=== PATIENT | female | born 2000 | race Two or more races ===

== ENCOUNTER 2021-04-13 10:03 | Emergency (ER) | payer MEDICAID, OTHER ==
[~2021-04-13] VITALS: Ht 152.4 cm; Wt 41.3 kg
[2021-04-13 10:03] VITALS: BP 118/76
[2021-04-13 10:49] LABS: Urine Bacteria FEW /hpf (None Seen); Urine Blood Negative /uL (Negative); Urine Mucus FEW (None Seen); Urine Specific Gravity 1.017 (1.001-1.035); Urine WBC 3 /hpf (0 - 5)
[2021-04-13 10:58] LABS: Alcohol, Urine < 3.0 mg/dL (0-10); Amphetamine Screen, Urine NEGATIVE (NEGATIVE); Barbiturate Scree,Urine NEGATIVE (NEGATIVE); Benzodiazephine Screen, Urine NEGATIVE (NEGATIVE); Cannabinoid Screen, Urine NEGATIVE (NEGATIVE); Cocaine Screen, Urine NEGATIVE (NEGATIVE); Opiate Scree,Urine NEGATIVE (NEGATIVE); Phencyclidine Screen, Urine NEGATIVE (NEGATIVE)
== END 2021-04-13 12:09 | disposition home or self-care (01) ==
LOC: ER 10:03
DX: R07.89 Other chest pain (principal); F41.9 Anxiety disorder, unspecified; Z32.02 Encounter for pregnancy test, result negative
CPT/HCPCS: 80307; 81001; 81025; 93005

== ENCOUNTER 2021-05-08 11:35 | Emergency (ER) | payer MEDICAID ==
[~2021-05-08] VITALS: Ht 152.4 cm; Wt 40.8 kg
[2021-05-08] MEDS ORDERED: MORPHINE SULFATE 4 MG/ML SYR/VIAL IV ONE (12:00)
[2021-05-08] MEDS ORDERED: ONDANSETRON HCL 4 MG/2 ML VIAL IV ONE (12:00)
[2021-05-08] MEDS ORDERED: SODIUM CHLORIDE 0.9% 500 ML IVB ONE (12:00)
[2021-05-08 12:11] LABS: Urine Bacteria FEW /hpf (None Seen); Urine Blood Negative /uL (Negative); Urine Specific Gravity 1.002 (1.001-1.035); Urine WBC 1 /hpf (0 - 5)
[2021-05-08 12:15] LABS: Basophils # (auto) 0 10 ^3/uL (0-0.2); Basophils % (auto) 0.3 % (0.0-2.0); Eosinophils # (auto) 0 10 ^3/uL (0-0.8); Monocytes # (auto) 0.4 10 ^3/uL (0-1.3)
[2021-05-08 12:17] LABS: Eosinophils % (auto) 0.3 % (0.0-7.0); Hematocrit 36.6 % (36.0-46.0); Hemoglobin 11.7 g/dL (12.2-16.2); Lymphocytes # (auto) 0.9 10 ^3/uL (0.4-5.4); Lymphocytes % (auto) 11.8 % (10.0-50.0); Mean Corpuscular Hemoglobin 24.5 pg (28.0-32.0); Mean Corpuscular Hgb Conc. 32.1 g/dL (32.0-36.0); Mean Corpuscular Volume 76.2 fL (80.0-100.0); Monocytes % (auto) 5.4 % (0.0-12.0); Neutrophils # (auto) 6.4 10 ^3/uL (1.6-8.6); Neutrophils % (auto) 82.2 % (37.0-80.0); White Blood Cell 7.8 10^3/uL (4.4-10.8)
[2021-05-08 12:40] LABS: Albumin 4.3 g/dL (3.4-5.0); Calcium 8.7 mg/dL (8.5-10.1); Potassium 3.5 mmol/L (3.5-5.1)
[2021-05-08 12:45] LABS: BUN/Creatinine Ratio 10.5; Bilirubin, Total 0.7 mg/dL (0.2-1.0)
[2021-05-08] MEDS ORDERED: IOHEXOL 300 MG/ML 100ML BOTTLE IJ ONE (12:54)
[2021-05-08 13:20] VITALS: BP 124/65
== END 2021-05-08 16:31 | disposition home or self-care (01) ==
LOC: ER 11:35
DX: N83.201 Unspecified ovarian cyst, right side (principal); Z32.02 Encounter for pregnancy test, result negative
CPT/HCPCS: 36415; 74177; 76856; 80053; 81001; 81025; 83690; 83735; 85025; 96361; 96374; 96375; 99285; J2270; J2405; J7040; Q9967

== ENCOUNTER 2022-04-02 10:40 | Emergency (ER) | payer MEDICAID ==
[~2022-04-02] VITALS: Ht 152.4 cm; Wt 47.6 kg
[2022-04-02 10:49] VITALS: BP 129/85
[2022-04-02 11:22] LABS: Eosinophils # (auto) 0.1 10 ^3/uL (0-0.8); Hemoglobin 11.7 g/dL (12.2-16.2); Lymphocytes # (auto) 1.2 10 ^3/uL (0.4-5.4); Mean Corpuscular Hemoglobin 25.3 pg (28.0-32.0); Neutrophils # (auto) 2.8 10 ^3/uL (1.6-8.6); Red Cell Distribution Width 15.2 % (11.8-14.3); White Blood Cell 4.5 10^3/uL (4.4-10.8)
[2022-04-02 11:24] LABS: Basophils # (auto) 0 10 ^3/uL (0-0.2); Hematocrit 36.3 % (36.0-46.0); Lymphocytes % (auto) 27.3 % (10.0-50.0); Mean Corpuscular Hgb Conc. 32.2 g/dL (32.0-36.0); Mean Corpuscular Volume 78.7 fL (80.0-100.0); Monocytes # (auto) 0.3 10 ^3/uL (0-1.3); Monocytes % (auto) 7.2 % (0.0-12.0); Neutrophils % (auto) 62.5 % (37.0-80.0); Red Blood Cells 4.62 10^6/uL (4.0-5.20)
[2022-04-02 11:30] LABS: Urine Bacteria NONE SEEN /hpf (None Seen); Urine Blood 3+ /uL (Negative); Urine Specific Gravity 1.016 (1.001-1.035); Urine WBC 1 /hpf (0 - 5)
[2022-04-02 11:35] LABS: Calcium 8.5 mg/dL (8.5-10.1); Potassium 4.1 mmol/L (3.5-5.1)
[2022-04-02 11:38] LABS: BUN/Creatinine Ratio 14.3; Bilirubin, Total 0.5 mg/dL (0.2-1.0); Total Protein 7.8 g/dL (6.4-8.2)
== END 2022-04-02 13:45 | disposition home or self-care (01) ==
LOC: ER 10:40
DX: R10.31 Right lower quadrant pain (principal)
CPT/HCPCS: 36415; 74176; 80053; 81001; 81025; 83690; 85025

== ENCOUNTER 2022-05-17 15:54 | Emergency (ER) | payer MEDICAID ==
[2022-05-17 17:18] LABS: Basophils # (auto) 0 10 ^3/uL (0-0.2); Hemoglobin 11.3 g/dL (12.2-16.2); Lymphocytes % (auto) 9.3 % (10.0-50.0); Monocytes # (auto) 0.5 10 ^3/uL (0-1.3); Red Cell Distribution Width 15.2 % (11.8-14.3)
[2022-05-17 17:19] LABS: Basophils % (auto) 0.2 % (0.0-2.0); Eosinophils # (auto) 0.1 10 ^3/uL (0-0.8); Eosinophils % (auto) 0.7 % (0.0-7.0); Hematocrit 36.1 % (36.0-46.0); Mean Corpuscular Hemoglobin 24.2 pg (28.0-32.0); Mean Corpuscular Hgb Conc. 31.2 g/dL (32.0-36.0); Mean Corpuscular Volume 77.7 fL (80.0-100.0); Monocytes % (auto) 4.5 % (0.0-12.0); Neutrophils # (auto) 8.9 10 ^3/uL (1.6-8.6); Neutrophils % (auto) 85.3 % (37.0-80.0); Red Blood Cells 4.65 10^6/uL (4.0-5.20); White Blood Cell 10.4 10^3/uL (4.4-10.8)
[2022-05-17 17:31] LABS: Calcium 8.6 mg/dL (8.5-10.1); Potassium 3.2 mmol/L (3.5-5.1)
[2022-05-17 17:36] LABS: BUN/Creatinine Ratio 14.1; Bilirubin, Total 0.3 mg/dL (0.2-1.0); Total Protein 7.4 g/dL (6.4-8.2)
[2022-05-17 19:31] LABS: Urine Bacteria NONE SEEN /hpf (None Seen); Urine Blood Negative /uL (Negative); Urine Specific Gravity 1.014 (1.001-1.035); Urine WBC 1 /hpf (0 - 5)
[2022-05-17] MEDS ORDERED: POTASSIUM EFFERVESENT TAB 25 MEQ PO ONE (20:15)
[2022-05-17] MEDS ORDERED: SODIUM CHLORIDE 0.9% 1,000 ML IV ONE (20:15)
[2022-05-17] MEDS ORDERED: DOXY100C PO (21:07)
[2022-05-17] MEDS ORDERED: DICL50TA2 PO (21:07)
[2022-05-17] MEDS ORDERED: TRAM50TA2 PO (21:07)
[2022-05-17] MEDS ORDERED: METOCLOPRAMIDE HCL 5MG/ml INJ 2ml VIAL IV ONE (21:15)
[2022-05-17] MEDS ORDERED: KETOROLAC TROMETH 30 MG/ML 1ML VIAL IV ONE (21:15)
[2022-05-17 21:39] VITALS: BP 107/86
[2022-05-17] MEDS ORDERED: IOHEXOL 300 MG/ML 100ML BOTTLE IJ ONE (21:40)
== END 2022-05-17 21:54 | disposition home or self-care (01) ==
LOC: ER 15:54
DX: N83.201 Unspecified ovarian cyst, right side (principal); E87.6 Hypokalemia; D50.9 Iron deficiency anemia, unspecified; K59.00 Constipation, unspecified
CPT/HCPCS: 36415; 74177; 76705; 76856; 80053; 81001; 84702; 85025; 96374; 96375; 99285; J1885; J2765; Q9967

== ENCOUNTER 2024-02-27 04:44 | Emergency (ER) | payer MEDICAID ==
[~2024-02-27] VITALS: Ht 152.4 cm; Wt 70.2 kg
[~2024-02-27 04:44] MED LIST: DICL50TA2 PO; DOXY100C PO; TRAM50TA2 PO
[2024-02-27 07:28] LABS: Urine Bacteria None Seen /hpf (None Seen)
[2024-02-27 07:37] LABS: Urine Blood 2+ /uL (Negative); Urine Clarity Clear (Clear); Urine Color Light-Yellow (Yellow); Urine Protein, UAD Negative (Negative); Urine Specific Gravity 1.018 (1.001-1.035); Urine Urobilinogen Normal (Negative); Urine WBC 4 /hpf (0 - 5); Urine pH 5.5 (5.0-9.0)
[2024-02-27 08:11] VITALS: BP 127/81; PULSE 76; RESP 17; TEMP 97.9; O2SAT 98
[2024-02-27] MEDS: HYDROcodone-ACET 5/325MG TAB PO ONE (08:11)
== END 2024-02-27 08:16 | disposition home or self-care (01) ==
LOC: ER 04:44
DX: N94.6 Dysmenorrhea, unspecified (principal); F12.10 Cannabis abuse, uncomplicated; Z32.02 Encounter for pregnancy test, result negative
CPT/HCPCS: 81001; 81025

== ENCOUNTER 2024-03-09 06:11 | Emergency (ER) | payer MEDICAID ==
[~2024-03-09] VITALS: Ht 152.4 cm; Wt 68.2 kg
[2024-03-09 06:32] VITALS: BP 141/98; PULSE 78; RESP 18; TEMP 98
[2024-03-09 06:52] VITALS: O2SAT 99
[2024-03-09] MEDS: EPINEPHrine HCL 1 MG/1 ML AMP SC ONE (07:32)
[2024-03-09] MEDS: methylPREDNISolone SOD SUCC 125 MG/2 ML VL IM ONE (07:32)
[2024-03-09] MEDS ORDERED: TRIA0.02 TOP (07:35)
[2024-03-09] MEDS ORDERED: METH4PAK PO (07:35)
== END 2024-03-09 07:45 | disposition home or self-care (01) ==
LOC: ER 06:11
DX: T80.69XA Other serum reaction due to other serum, initial encounter (principal); F12.10 Cannabis abuse, uncomplicated
CPT/HCPCS: 96372; 99284; J0171; J2919

== ENCOUNTER 2024-12-10 04:00 | Emergency (ER) | payer MEDICAID ==
[~2024-12-10] VITALS: Ht 152.4 cm; Wt 75.6 kg
[~2024-12-10 04:00] MED LIST changes: +METH4PAK PO; +TRIA0.02 TOP
[2024-12-10 04:30] VITALS: BP 142/96; PULSE 92; RESP 16; TEMP 98.2; O2SAT 98
--- NOTE | 2024-12-10 04:31 | ED.PDOC ---
Eye-HPI HPI Comments Pt presents to ED d/t sore throat. Pt was recenty treated at [facility] and di agnosed with an ear infection and given antibiotics (cephelexin) and ibuprofen. Pt was also swabbed for covid, flu, and strep, all negative. Pt states she has trouble swallowing and was febrile yesterday at 101. Airway clear. VSS. Denies chest pain, difficulty breathing, shortness of breath. Chief Complaint: Sore Throat Time Seen by MD: 04:02 Primary Care Provider: John Reviewed Notes: Nurses Notes, Medications, Allergies Allergies: Coded Allergies: NO KNOWN ALLERGIES (Unverified , 04/13/21) Home Meds Active Scripts Ondansetron Odt 4MG Tab (ZOFRAN PO) 4 Mg Tb, 4 MG PO TID for 4 Days, #12 TAB ODT TAB-DISSOLVE IN MOUTH, THEN SWALLOW Prov:LOURDES MARRERO HEAD BANDER AND LINER OPERATOR 12/10/24 Methylprednisolone (Medrol Dosepak) 4 Mg Johnathon, 4 MG PO UD for 6 Days, #21 TAB UAD Prov:LOURDES MARRERO HEAD BANDER AND LINER OPERATOR 12/10/24 Amoxicillin & Pot Clavulanate (AUGMENTIN TABLET) 875 Mg Tb, 875 MG PO BID for 10 Days, #20 TAB Prov:LOURDES MARRERO HEAD BANDER AND LINER OPERATOR 12/10/24 Triamcinolone Acetonide (Triamcinolone Acetonide) 0.025 % Cre, 1 APPLIC TOP BID, #30 GRAMS Prov:MARIELA CATHERINE 03/09/24 Methylprednisolone (Medrol Dosepak) 4 Mg Johnathon, 4 MG PO UD, #21 TAB UAD Prov:MARIELA CATHERINE 03/09/24 Tramadol Hcl (Tramadol Hcl) 50 Mg Tab, 50 MG PO BID for 5 Days, #10 TAB Prov:STACY BAIN MD 05/17/22 Doxycycline Hyclate (Vibramycin) 100 Mg Cap, 1 CAP PO BID for 7 Days, #14 CAP Prov:STACY BAIN MD 05/17/22 Diclofenac Potassium (Diclofenac Potassium) 50 Mg Tab, 50 MG PO TID for 5 Days, #15 TAB Prov:STACY BAIN MD 05/17/22 Past Medical History PAST MEDICAL HISTORY: Denies Surgical History: Denies all surgeries FASHION CONSULTANT History: Ovarian Cysts Family History Family History: Reviewed,noncontributory to illness Social History Smoker: Non-Smoker Alcohol: Occasionally Drugs: Marijuana Lives In: Home Constitutional: denies: chills, diaphoresis, fatigue, fever, malaise, sweats, weakness, others EENTM: reports: throat pain, throat swelling; denies: blurred vision, double vision, ear bleeding, ear discharge, ear drainage, ear pain, ear ringing, eye pain, eye redness, hearing loss, mouth pain, mouth swelling, nasal discharge, nose bleeding, nose congestion, nose pain, photophobia, tearing, voice changes, others Respiratory: denies: cough, hemoptysis, orthopnea, SOB at rest, shortness of breath, SOB with excertion, stridor, wheezing, others Cardiovascular: denies: chest pain, dizzy spells, diaphoresis, Dyspnea on exertion, edema, irregular heart beat, left arm pain, lightheadedness, p alpitations, PND, syncope, others Gastrointestinal: reports: nausea; denies: abdomen distended, abdominal pain, blood streaked bowels, constipated, diarrhea, dysphagia, difficulty swallowing, hematemesis, melena, poor appetite, poor fluid intake, rectal bleeding, rectal pain, vomiting, others Genitourinary: denies: abnormal vagina bleeding, burning, dyspareunia, dysuria, flank pain, frequency, hematuria, incontinence, pain, , vagina di scharge, urgency, others Neurological: denies: dizziness, fainting, headache, left sided numbness, left sided weakness, numbness, paresthesia, pre-existing deficit, right sided numbness, right sided weakness, seizure, speech problems, tingling, tremors, weakness, others Musculoskeletal: denies: back pain, gout, joint pain, joint swelling, muscle pain, muscle stiffness, neck pain, others Integumetry: denies: bruises, change in color, change in hair/nails, dryness, laceration, lesions, lumps, rash, wounds, others Allergic/Immunocompromised: denies: Difficulty Healing, Frequent Infections, Hives, Itching, others Hematologic/Lymphatic: denies: anemia, blood clots, easy bleeding, easy bruising, swollen glands, others Endocrine: denies: excessive hunger, excessive sweating, excessive thirst, excessive urination, flushing, intolerance to cold, intolerance to heat, unexplained weight gain, unexplained weight loss, others Psychiatric: denies: anxiety, bipolar disorder, depression, hopeless, panic disorder, schizophrenia, sleepless, suicidal, others Physical Exam General Appearance: No Apparent Distress, Normal HEENT: Pharyngeal Erythema, TMs Normal Neck: Full Range of Motion, Non-Tender Respiratory: Lungs Clear, No Respiratory Distress, Normal Breath Sounds Cardiovascular: No Murmur, Normal Peripheral Pulses, Regular Rate/Rhythm Breast Exam: Deferred Gastrointestinal: Non Tender, Soft Genitalia: Deferred Pelvic: Deferred Rectal: Deferred Extremities: No calf tenderness, Normal range of motion Musculoskeletal : Apperance: Normal Neurologic: Alert, reroller hand II-XII nml as Tested, No Motor Deficits, Normal Affect, Normal Mood, No Sensory Deficits Cerebellar Function: Normal Reflexes: Normal Skin: Dry, Normal Color, Warm Lymphatic: No Adenopathy Was a procedure done? Was a procedure done?: No EENT DIFF Eye: N/A Sore Throat: Peritonsillar Abscess, Peritonsillar Cellulitis, Pharyngitis, Viral Pharyngitis, URI X-Ray, Labs, Meds, VS Vital Signs Date Time Temp Pulse Resp B/P (MAP) Pulse Ox O2 Delivery O2 Flow Rate FiO2 12/10/24 04:30 92 16 98 Room Air 12/10/24 04:30 98.2 92 16 142/96 (111) 98 98.2 12/10/24 04:20 98.2 92 16 142/96 (111) 98 Current Medications Medications (Trade) Dose Ordered Sig/Tung Route Start Time Stop Time Status Last Admin Ceftriaxone Sodium (Rocephin) 1,000 mg ONCE ONCE IM 12/10/24 04:45 12/10/24 04:46 DC 12/10/24 04:40 Dexamethasone Sodium Phosphate (Decadron Injection) 10 mg ONCE ONCE IM 12/10/24 04:45 12/10/24 04:46 DC 12/10/24 04:40 Ondansetron HCl (Zofran Po) 4 mg ONCE ONCE PO 12/10/24 04:45 12/10/24 04:46 DC 12/10/24 04:40 X-Ray, Labs, Meds, VS Comment Patient given Rocephin 1 g IM and Decadron 10 mg IM reports improvement requesting discharge at this time. Likely bacterial advised patient to start the Keflex and start Augmentin Medrol Dosepak script to pharmacy. Zofran sublingual p.r.n. nausea. Increase p.o. fluids with electrolytes consider popsicles to help soothe the throat. With her PCP in 1-2 days take medications as prescribed side effects discussed ER return precautions given patient indicates understanding agrees with discharge plan of care. Time of 1ST Reevaluation: 04:51 Reevaluation 1ST: Improved Patient Education/Counseling: Diagnosis, Treatment, Prognosis, Need For Follow Up Family Education/Counseling: Diagnosis, Treatment, Prognosis, Need For Follow Up Departure 1 Departure Time of Disposition: 04:51 Impression: Primary Impression: Pharyngitis Qualified Codes: J02.9 - Acute pharyngitis, unspecified Additional Impression: Nausea Disposition: 01 HOME / SELF CARE / HOMELESS Condition: Stable e-Prescriptions Ondansetron Odt 4MG Tab (ZOFRAN PO) 4 Mg Tb 4 MG PO TID for 4 Days, #12 TAB ODT TAB-DISSOLVE IN MOUTH, THEN SWALLOW Prov: LOURDES MARRERO 12/10/24 Methylprednisolone (Medrol Dosepak) 4 Mg Johnathon 4 MG PO UD for 6 Days, #21 TAB UAD Prov: LOURDES MARRERO 12/10/24 Amoxicillin & Pot Clavulanate (AUGMENTIN TABLET) 875 Mg Tb 875 MG PO BID for 10 Days, #20 TAB Prov: LOURDES MARRERO 12/10/24 Discharged With: Significant Other Critical Care Note Critical Care Time?: No Stability Stability form required: No LOURDES MARRERO Dec 10, 2024 04:31
[2024-12-10] MEDS: ONDANSETRON ODT 4 MG TAB PO ONE (04:40)
[2024-12-10] MEDS: cefTRIAXone SOD 1,000 MG VL IM ONE (04:40)
[2024-12-10] MEDS: DexAMETHasone SOD PHOS 10MG/1ML VIAL INJ IM ONE (04:40)
[2024-12-10] MEDS ORDERED: AUG875T PO (04:41)
[2024-12-10] MEDS ORDERED: METH4PAK PO (04:41)
[2024-12-10] MEDS ORDERED: ZOFR4T PO (04:41)
== END 2024-12-10 04:59 | disposition home or self-care (01) ==
LOC: ER 04:00
DX: J02.9 Acute pharyngitis, unspecified (principal); R11.0 Nausea; F12.90 Cannabis use, unspecified, uncomplicated; Z79.899 Other long term (current) drug therapy
CPT/HCPCS: 96372; 99284; J0696; J1100; Q0162

== ENCOUNTER 2025-04-10 22:37 | Emergency (ER) | payer MEDICAID ==
[~2025-04-10] VITALS: Ht 152.4 cm; Wt 76.5 kg
[2025-04-10 23:29] VITALS: BP 140/87; PULSE 87; RESP 20; TEMP 98.3; O2SAT 99
[2025-04-10 23:32] LABS: Urine Bacteria MANY /hpf (None Seen); Urine Blood 1+ /uL (Negative); Urine Clarity Turbid (Clear); Urine Color Yellow (Yellow); Urine Mucus FEW (None Seen); Urine Protein, UAD TRACE (Negative); Urine Specific Gravity 1.034 (1.001-1.035); Urine Squamous Epithelial Cell FEW /hpf (<5); Urine Urobilinogen Normal (Negative); Urine WBC 18 /HPF (0-5)
[2025-04-10] MEDS ORDERED: BACDST PO (23:42)
[2025-04-10] MEDS ORDERED: ACET500T58 PO (23:42)
--- NOTE | 2025-04-10 23:42 | ED.PDOC ---
General HPI Comments 24-year-old female presents to ER with urinary complaint x3 days. Patient reports she has been experiencing burning with urination, increase in urination and intermittent lower back pain x3 days. Denies any current pain denies use of medications for current symptoms. Patient presents to ER ambulatory on arrival, with steady gait, in no distress with vitals stable. Denies fever, body aches, chills, night sweats, n/v, abdominal/pelvic pain, flank pain, further changes in urination or any further symptoms/complaints Chief Complaint: Urinary Time Seen by MD: 22:39 Primary Care Provider: John Hines notes: Nurses Notes, Medications, Allergies Allergies: Coded Allergies: NO KNOWN ALLERGIES (Unverified , 04/13/21) Home Meds Active Scripts Acetaminophen (Acetaminophen) 500 Mg Tab, 500 MG PO Q4HPRN, #30 TAB 0 Refills Prov:ANGELES MOCTEZUMA 04/10/25 Sulfamethoxazole W/Trimethopri (Bactrim Ds Tablet) 1 Tab Tb, 1 TAB PO BID for 7 Days, #14 TAB 0 Refills Prov:ANGELES MOCTEZUMA 04/10/25 Triamcinolone Acetonide (Triamcinolone Acetonide) 0.025 % Cre, 1 APPLIC TOP BID, #30 GRAMS Prov:MARIELA CATHERINE 03/09/24 Methylprednisolone (Medrol Dosepak) 4 Mg Johnathon, 4 MG PO UD, #21 TAB UAD Prov:MARIELA CATHERINE 03/09/24 Tramadol Hcl (Tramadol Hcl) 50 Mg Tab, 50 MG PO BID for 5 Days, #10 TAB Prov:STACY BAIN MD 05/17/22 Doxycycline Hyclate (Vibramycin) 100 Mg Cap, 1 CAP PO BID for 7 Days, #14 CAP Prov:STACY BAIN MD 05/17/22 Diclofenac Potassium (Diclofenac Potassium) 50 Mg Tab, 50 MG PO TID for 5 Days, #15 TAB Prov:STACY BAIN MD 05/17/22 Information Source: Patient Mode of Arrival: Ambulatory Past Medical History PAST MEDICAL HISTORY: UTI'S Surgical History: Denies all surgeries DIETIST History: Ovarian Cysts Family History Family History: Unknown Social History Smoker: Non-Smoker Alcohol: Occasionally Drugs: Denies Drug Use Lives In: Home Constitutional: denies: chills, diaphoresis, fatigue, fever, malaise, sweats, weakness, others EENTM: denies: blurred vision, double vision, ear bleeding, ear discharge, ear drainage, ear pain, ear ringing, eye pain, eye redness, hearing loss, mouth pain, mouth swelling, nasal discharge, nose bleeding, nose congestion, nose pain, photophobia, tearing, throat pain, throat swelling, voice changes, others Respiratory: denies: cough, hemoptysis, orthopnea, SOB at rest, shortness of breath, SOB with excertion, stridor, wheezing, others Cardiovascular: denies: chest pain, dizzy spells, diaphoresis, Dyspnea on exertion, edema, irregular heart beat, left arm pain, lightheadedness, palpitations, PND, syncope, others Gastrointestinal: denies: abdomen distended, abdominal pain, blood streaked bowels, constipated, diarrhea, dysphagia, difficulty swallowing, hematemesis, melena, nausea, poor appetite, poor fluid intake, rectal bleeding, rectal pain, vomiting, others Genitourinary: reports: others (As stated in HPI) Neurological: denies: dizziness, fainting, headache, left sided numbness, left sided weakness, numbness, paresthesia, pre-existing deficit, right sided numbness, right sided weakness, seizure, speech problems, tingling, tremors, weakness, others Musculoskeletal: reports: others (As stated in HPI) Integumetry: denies: bruises, change in color, change in hair/nails, dryness, laceration, lesions, lumps, rash, wounds, others Allergic/Immunocompromised: denies: Difficulty Healing, Frequent Infections, Hives, Itching, others Hematologic/Lymphatic: denies: anemia, blood clots, easy bleeding, easy bruising, swollen glands, others Endocrine: denies: excessive hunger, excessive sweating, excessive thirst, excessive urination, flushing, intolerance to cold, intolerance to heat, unexplained weight gain, unexplained weight loss, others Psychiatric: denies: anxiety, bipolar disorder, depression, hopeless, panic disorder, schizophrenia, sleepless, suicidal, others Physical Exam General Appearance: No Apparent Distress HEENT: PERRL/EOMI Neck: Full Range of Motion, Non-Tender, Normal Respiratory: Chest Non-Tender, Lungs Clear, No Accessory Muscle Use, No Respiratory Distress, Normal Breath Sounds Cardiovascular: No Murmur, No Gallop, Regular Rate/Rhythm Breast Exam: Deferred Gastrointestinal: Non Tender, No Pulsatile Mass, Soft Genitalia: Deferred Pelvic: Deferred Rectal: Deferred Extremities: Normal capillary refill, Normal range of motion Musculoskeletal : Extremity Location: Back (No TTP to bilateral flanks or CVA tenderness noted bilaterally) Neurologic: Alert, bus analyst II-XII nml as Tested, No Motor Deficits, Normal Affect, Normal Mood, No Sensory Deficits Cerebellar Function: Normal Reflexes: Normal Skin: Dry, Normal Color, Warm Lymphatic: No Adenopathy Was a procedure done? Was a procedure done?: No Sedation Sedation?: No Differential Diagnosis Kidney stone (Female): N/A Urinary Problem (Female): Intrauterine , Pyelonephritis, Urinary retention, Urolithiasis X-Ray, Labs, Meds, VS Vital Signs Date Time Temp Pulse Resp B/P (MAP) Pulse Ox O2 Delivery O2 Flow Rate FiO2 04/10/25 23:29 99 Room Air* 0 21 04/10/25 23:29 98.3 87 20 140/87 (104) 99 98.3 04/10/25 23:04 98.3 87 20 140/87 (104) 99 98.3 Lab Test 04/10/25 23:00 Range/Units Urine Color Yellow Yellow Urine Clarity Turbid H Clear Urine pH 6.0 5.0-9.0 Urine Specific [place] 1.034 1.001-1.035 Urine Protein Trace H Negative Urine Ketones Trace Negative Urine Blood 1+ H Negative /uL Urine Nitrite 2+ H Negative Urine Bilirubin Negative Negative Urine Urobilinogen Normal Negative mg/dL Urine Leukocyte Esterase 2+ Negative /uL Urine RBC 7 0 - 4 /hpf Urine Microscopic WBC 18 H 0-5 /HPF Urine Squamous Epithelial Cells Few <5 /hpf Urine Bacteria Many H None Seen /hpf Urine Mucus Few None Seen Urine Glucose Normal Normal mg/dL Urine Test Negative Negative Urinalysis reviewed-urine nitrites 2+, urine blood 1+, urine leukocyte esterase 2+ Urine reviewed-negative Rocephin 1 g IM ordered Advised to drink plenty of fluids Advised to follow up with PCP in 1-2 days Patient verbalized understanding and agreeable with current plan of care Advised to return to ER immediately if symptoms worsen Time of 1ST Reevaluation: 23:24 Reevaluation 1ST: N/A Patient Education/Counseling: Diagnosis, Treatment, Prognosis, Need For Follow Up Family Education/Counseling: No Family Present SEPSIS Sepsis Screen Date sepsis recognized/suspect: Apr 10, 2025 Time Sepsis recognized/suspect: 2246 Recent Procedure: No On Antibiotic Therapy: No Respiratory Rate >20: No Heart Rate >90: No Temp<36 C (96.8 F) or >38.3 C: No SBP <90 or MAP <65 mmHG: No New Acute Mental Status Change: No Is the patient on CPAP, BIPAP,: No Physician Orders Ceftriaxone Sodium (Rocephin) (04/10/25 23:45) Vital Signs Date Time Temp Pulse Resp B/P (MAP) Pulse Ox O2 Delivery O2 Flow Rate FiO2 04/10/25 23:29 99 Room Air* 0 21 04/10/25 23:29 98.3 87 20 140/87 (104) 99 98.3 04/10/25 23:04 98.3 87 20 140/87 (104) 99 98.3 Departure 1 Departure Time of Disposition: 23:40 Impression: Primary Impression: UTI (urinary tract infection) Qualified Codes: N30.01 - Acute cystitis with hematuria Disposition: HOME / SELF CARE / HOMELESS Condition: Stable e-Prescriptions Acetaminophen (Acetaminophen) 500 Mg Tab 500 MG PO Q4HPRN, #30 TAB 0 Refills Prov: ANGELES MOCTEZUMA 04/10/25 Sulfamethoxazole W/Trimethopri (Bactrim Ds Tablet) 1 Tab Tb 1 TAB PO BID for 7 Days, #14 TAB 0 Refills Prov: ANGELES MOCTEZUMA 04/10/25 Discharged With: Self Critical Care Note Critical Care Time?: No Stability Stability form required: No Heart Score Heart Score: Heart Score Response (Comments) Value History N/A 0 EKG N/A 0 Age N/A 0 Risk Factors N/A 0 Troponin N/A 0 Total 0 ANGELES MOCTEZUMA Apr 10, 2025 23:42
[2025-04-10] MEDS: cefTRIAXone SOD 1,000 MG VL IM ONE (23:47)
== END 2025-04-10 23:53 | disposition home or self-care (01) ==
LOC: ER 22:37
DX: N39.0 Urinary tract infection, site not specified (principal)
CPT/HCPCS: 81001; 81025; 96372; 99283; J0696

== ENCOUNTER 2025-06-07 15:57 | Inpatient (IN) | payer MEDICAID ==
[~2025-06-07] VITALS: Ht 152.4 cm; Wt 74.5 kg
[~2025-06-07 15:57] MED LIST changes: +ACET500T58 PO; +BACDST PO
[2025-06-07 17:53] LABS: Hematocrit 42.3 % (36.0-46.0); Hemoglobin 14.3 g/dL (12.2-16.2); Mean Corpuscular Hemoglobin 29.5 pg (28.0-32.0); Mean Corpuscular Volume 87.4 fL (80.0-100.0); Nucleated Red Blood Cells % 0.1 %
[2025-06-07 18:00] LABS: Albumin 4.5 g/dL (3.2-4.8); Alkaline Phosphatase 75 U/L (46-116); Anion Gap 9 (5-15); Bilirubin, Total 0.3 mg/dL (0.2-1.0); Carbon Dioxide 21 mmol/L (20-31); Glucose 90 mg/dL (74-106); Sodium 139 mmol/L (136-145); Total Protein 7.1 g/dL (5.7-8.2)
[2025-06-07 18:02] LABS: Alanine Aminotransferase 43 U/L (7-40); BUN/Creatinine Ratio 6.0 (10.0-20.0); Blood Urea Nitrogen < 5 mg/dL (9-23); Calcium 8.6 mg/dL (8.7-10.4); Chloride 109 mmol/L (98-107); Potassium 3.3 mmol/L (3.5-5.1)
[2025-06-07 18:10] LABS: Urine Amorphous Crystal FEW /hpf (None Seen); Urine Protein, UAD TRACE (Negative)
--- NOTE | 2025-06-07 19:01 | ED.PDOC ---
GI ASSESSMENT HPI Comments 24-year-old female with a history of hypertension, PUD, asthma and ovarian cysts brought in by private car complaining of diarrhea for the last 5 days, associated with abdominal cramping, lightheadedness for the last 2 days and nausea. She denies any fever, vomiting or dysuria. She does note either vaginal bleeding or hematuria yesterday which was mild, not occurring today. Chief Complaint: Diarrhea Time Seen by MD: 16:50 Primary Care Provider: John Hines Notes: Medications, Allergies Allergies: Coded Allergies: NO KNOWN ALLERGIES (Unverified , 04/13/21) Home Meds Active Scripts Acetaminophen (Acetaminophen) 500 Mg Tab, 500 MG PO Q4HPRN, #30 TAB 0 Refills Prov:ANGELES MOCTEZUMA 04/10/25 Sulfamethoxazole W/Trimethopri (Bactrim Ds Tablet) 1 Tab Tb, 1 TAB PO BID for 7 Days, #14 TAB 0 Refills Prov:ANGELES MOCTEZUMA 04/10/25 Triamcinolone Acetonide (Triamcinolone Acetonide) 0.025 % Cre, 1 APPLIC TOP BID, #30 GRAMS Prov:MARIELA CATHERINE 03/09/24 Methylprednisolone (Medrol Dosepak) 4 Mg Johnathon, 4 MG PO UD, #21 TAB UAD Prov:MARIELA CATHERINE 03/09/24 Tramadol Hcl (Tramadol Hcl) 50 Mg Tab, 50 MG PO BID for 5 Days, #10 TAB Prov:STACY BAIN MD 05/17/22 Doxycycline Hyclate (Vibramycin) 100 Mg Cap, 1 CAP PO BID for 7 Days, #14 CAP Prov:STACY BAIN MD 05/17/22 Diclofenac Potassium (Diclofenac Potassium) 50 Mg Tab, 50 MG PO TID for 5 Days, #15 TAB Prov:STACY BAIN MD 05/17/22 Information Source: Patient Mode of Arrival: Ambulatory Timing: Days Duration: Since onset Prehospital treatment: None Quality: Aching Vomitus: None Stool: Normal Severity: Moderate Recent: None Recent Hx of: None Pain Location: LLQ Associated sign and symptoms: Nausea, Abdominal Pain Past Medical History PAST MEDICAL HISTORY: Asthma, HTN, PUD, UTI'S Past Medical History (Other): Ovarian cysts Surgical History: Denies all surgeries [employer] History: Ovarian Cysts Family History Family History: Reviewed,noncontributory to illness Social History Smoker: Non-Smoker Alcohol: Occasionally Drugs: Denies Drug Use Lives In: Home All Other Systems: Reviewed and Negative (COMPREHENSIVE SYSTEMS OBTAINED AND ALL NEGATIVE EXCEPT FOR WHAT IS STATED IN THE HPI.) Physical Exam General Appearance: No Apparent Distress, Obese HEENT: Other (Pupils and face symmetric. Moist mucous membranes.) Neck: Full Range of Motion, Normal Inspection Respiratory: Lungs Clear, No Accessory Muscle Use, No Respiratory Distress, Normal Breath Sounds Cardiovascular: No Edema, No JVD, Regular Rate/Rhythm Breast Exam: Deferred Gastrointestinal: LLQ, Soft, Tenderness Genitalia: Deferred Pelvic: Deferred Rectal: Deferred Extremities: Normal inspection, Normal range of motion, Non-tender, No pedal edema Neurologic: Alert (Oriented x4), Normal Affect, Normal Mood, Other (Ambulatory) Cerebellar Function: NOT DONE Reflexes: NOT DONE Skin: Dry, Normal Color, Warm Lymphatic: NOT DONE Was a procedure done? Was a procedure done?: No GI differential Dx Differential Diagnosis: Diverticular disease, Gastritis/PUD, Gastroenteritis, GI hemorrhage, Inflammatory BD, Ischemic Bowel, UTI, Dehydration, Electrolyte Imbalance, Food Poisoning, , Bacterial, Viral, Hypovolemia, Renal Failure, Anemia, Stress Ulcer, Kidney Stone X-Ray, Labs, Meds, VS Vital Signs Date Time Temp Pulse Resp B/P (MAP) Pulse Ox O2 Delivery O2 Flow Rate FiO2 06/07/25 22:02 89 17 133/81 06/07/25 21:54 89 17 97 Room Air 06/07/25 21:54 98.0 89 17 133/81 (98) 97 98.0 06/07/25 15:58 98.6 98 13 139/95 99 98.6 Lab Test 06/07/25 17:21 06/07/25 16:10 Range/Units White Blood Count 6.5 4.4-10.8 10^3/uL Red Blood Count 4.84 4.0-5.20 10^6/uL Hemoglobin 14.3 12.2-16.2 g/dL Hematocrit 42.3 36.0-46.0 % Mean Corpuscular Volume 87.4 80.0-100.0 fL Mean Corpuscular Hemoglobin 29.5 28.0-32.0 pg Mean Corpuscular Hemoglobin Concent 33.7 32.0-36.0 g/dL Red Cell Distribution Width 13.2 11.8-14.3 % Platelet Count 315 140-450 10^3/uL Mean Platelet Volume 7.7 6.9-10.8 fL Neutrophils (%) (Auto) 70.9 37.0-80.0 % Lymphocytes (%) (Auto) 15.9 10.0-50.0 % Monocytes (%) (Auto) 11.6 0.0-12.0 % Eosinophils (%) (Auto) 1.4 0.0-7.0 % Basophils (%) (Auto) 0.2 0.0-2.0 % Neutrophils # (Auto) 4.6 1.6-8.6 10 ^3/uL Lymphocytes # (Auto) 1.0 0.4-5.4 10 ^3/uL Monocytes # (Auto) 0.8 0-1.3 10 ^3/uL Eosinophils # (Auto) 0.1 0-0.8 10 ^3/uL Basophils # (Auto) 0 0-0.2 10 ^3/uL Nucleated Red Blood Cells 0.1 % Sodium Level 139 136-145 mmol/L Potassium Level 3.3 L 3.5-5.1 mmol/L Chloride Level 109 H 98-107 mmol/L Carbon Dioxide Level 21 20-31 mmol/L Anion Gap 9 5-15 Blood Urea Nitrogen < 5 L 9-23 mg/dL Creatinine 0.84 0.550-1.02 mg/dL Glomerular Filtration Rate Calc 100 >90 mL/min BUN/Creatinine Ratio 6.0 L 10.0-20.0 Serum Glucose 90 74-106 mg/dL Lactic Acid Level 0.8 0.4-2.0 mmol/L Calcium Level 8.6 L 8.7-10.4 mg/dL Total Bilirubin 0.3 0.2-1.0 mg/dL Aspartate Amino Transferase (AST) 29 13-40 U/L Alanine Aminotransferase (ALT) 43 H 7-40 U/L Alkaline Phosphatase 75 46-116 U/L Total Protein 7.1 5.7-8.2 g/dL Albumin 4.5 3.2-4.8 g/dL Urine Color Brown H Yellow Urine Clarity Ex.turbid Clear Urine pH 5.5 5.0-9.0 Urine Specific [place] 1.023 1.001-1.035 Urine Protein Trace H Negative Urine Ketones 2+ H Negative Urine Blood 1+ H Negative /uL Urine Nitrite Negative Negative Urine Bilirubin Negative Negative Urine Urobilinogen Normal Negative mg/dL Urine Leukocyte Esterase Negative Negative /uL Urine RBC 1 0 - 4 /hpf Urine Microscopic WBC 17 H 0-5 /HPF Urine Squamous Epithelial Cells Few <5 /hpf Urine Amorphous Crystals Few None Seen /hpf Urine Bacteria None seen None Seen /hpf Urine Mucus Few None Seen Urine Glucose Normal Normal mg/dL Urine Test Negative Negative Current Medications Medications (Trade) Dose Ordered Sig/Tung Route Start Time Stop Time Status Last Admin Sodium Chloride 1,000 ml @ 1,000 mls/hr Q1H ONCE IV 06/07/25 17:00 06/07/25 17:59 DC 06/07/25 21:54 Ondansetron HCl (Zofran) 4 mg ONCE ONCE IV 06/07/25 17:00 06/07/25 17:01 DC 06/07/25 22:02 Morphine Sulfate 4 mg ONCE ONCE IV 06/07/25 17:00 06/07/25 17:01 DC 06/07/25 22:02 Levofloxacin/ Dextrose 100 ml @ 100 mls/hr ONCE ONCE IV 06/07/25 19:00 06/07/25 19:59 DC 06/07/25 22:02 Potassium Bicarbonate (Klor-Con/Ef) 50 meq ONCE ONCE PO 06/07/25 19:00 06/07/25 19:44 DC 06/07/25 22:10 PROCEDURE(s): ABPL - CT AB PEL WO CON-NO ORAL OR IV REASON: LLQ pain, diarrhea ORDER NUMBER(s): [id number], ACCESSION NUMBER(s): [id number] Exam: CT CT AB PEL WO CON-NO ORAL OR IV History: LLQ pain, diarrhea Comparison Study: CT AB PEL WITH IV CON ONLY on DOS: 05/17/22, PELVIC on DOS: 05/17/22, CT ABD PELVIS WO CONTRAST on DOS: 04/02/22 TECHNIQUE: Multidetector CT of the abdomen AND PELVIS without IV contrast. Axial, coronal and sagittal multiplanar reformats were obtained from the axial data set by the technologist. Radiation Dose Information: CT Dose: CTDI volume is 13.93 mGy. Dose-length product is 771.5 mGy*cm FINDINGS: The lung bases are clear. Partially visualized heart is unremarkable. Liver, spleen, gallbladder, pancreas and adrenal glands are unremarkable. Kidneys, ureters and urinary bladder unremarkable. Uterus and adnexa unremarkable. Mild gastric wall thickening. Mild wall Thickening of proximal small bowel loops. The remainder of the small bowel loops unremarkable. Appendix is unre markable. Mild wall thickening of the ascending and proximal transverse colon. The remainder of the large bowel is unremarkable. Small to moderate amount of fecal material within the colon. No evidence of intraperitoneal free air or free fluid. No evidence of aortic aneurysm. Prominent mesenteric lymph nodes the largest of the right lower abdominal quadrant measuring up to 1.1 cm in short axis. Mild nonspecific patchy fat stranding of the right posterolateral hip subcutaneous fat. The soft tissues are otherwise unremarkable. No evidence of acute osseous abnormalities. IMPRESSION: Mild wall thickening of the stomach and proximal small bowel loops which may be due to inadequate distention/mild gastroenteritis. Mild colitis involving the ascending colon and proximal transverse colon. Prominent mesenteric lymph nodes which represent mesenteric adenitis in the right clinical setting. X-Ray, Labs, Meds, VS Comment 24-year-old female with a history of hypertension, PUD, asthma and ovarian cysts brought in by private car complaining of diarrhea for the last 5 days, associated with abdominal cramping, lightheadedness for the last 2 days and nausea. Vitals remarkable for BP 139/95 Exam remarkable for left lower quadrant tenderness to palpation Rhythm strip independently interpreted by me: Sinus rhythm, rate 88, no ectopy. CT abdomen and pelvis IMPRESSION: Mild wall thickening of the stomach and proximal small bowel loops which may be due to inadequate distention/mild gastroenteritis. Mild colitis involving the ascending colon and proximal transverse colon. Prominent mesenteric lymph nodes which represent mesenteric adenitis in the right clinical setting. CBC unremarkable, metabolic panel remarkable for potassium 3.3, lactate normal, UA abnormal consistent with UTI Patient treated with the following in the ED: 1 L 0.9 normal saline IV bolus, Zofran 4 mg IV, morphine 4 mg IV, Levaquin 500 mg IV, Flagyl 500 mg IV, effervescent potassium 50 mEq p.o. On re-evaluation, patient states pain has improved. Vitals were stable. Plan is to admit the patient for IV antibiotics. Time of 1ST Reevaluation: 19:23 Reevaluation 1ST: Unchanged Patient Education/Counseling: Diagnosis, Treatment Family Education/Counseling: No Family Present SEPSIS Sepsis Screen Date sepsis recognized/suspect: Jun 07, 2025 Time Sepsis recognized/suspect: 8 Recent Procedure: No On Antibiotic Therapy: No Respiratory Rate >20: No Heart Rate >90: Yes Temp<36 C (96.8 F) or >38.3 C: No SBP <90 or MAP <65 mmHG: No New Acute Mental Status Change: No Is the patient on CPAP, BIPAP,: No SEPSIS EXCLUSION NOTE: Sepsis Exclusion Note: Patient presents with SIRS criteria, but the SIRS response is attributed to [ pain, dehydration], not sepsis. Sepsis bundle is not initiated at this time, due to this reason. Further management will focus on the treatment of the above condition (s). Physician Orders Ct Ab Pel Wo Con-No Oral Or Iv (06/07/25 16:50) Blood Culture (06/07/25 16:50) Vital Signs Date Time Temp Pulse Resp B/P (MAP) Pulse Ox O2 Delivery O2 Flow Rate FiO2 06/07/25 22:02 89 17 133/81 06/07/25 21:54 89 17 97 Room Air 06/07/25 21:54 98.0 89 17 133/81 (98) 97 98.0 06/07/25 15:58 98.6 98 13 139/95 99 98.6 Laboratory Tests Test 06/07/25 17:21 Lactic Acid Level 0.8 mmol/L (0.4-2.0) White Blood Count 6.5 10^3/uL (4.4-10.8) Medications Medications Dose Ordered Sig/Tung Route Start Time Stop Time Status Last Admin Dose Admin Levofloxacin/ Dextrose 100 ml @ 100 mls/hr ONCE ONCE IV 06/07/25 19:00 06/07/25 19:59 DC 06/07/25 22:02 Morphine Sulfate 4 mg ONCE ONCE IV 06/07/25 17:00 06/07/25 17:01 DC 06/07/25 22:02 Ondansetron HCl 4 mg ONCE ONCE IV 06/07/25 17:00 06/07/25 17:01 DC 06/07/25 22:02 Potassium Bicarbonate 50 meq ONCE ONCE PO 06/07/25 19:00 06/07/25 19:44 DC 06/07/25 22:10 Sodium Chloride 1,000 ml @ 1,000 mls/hr Q1H ONCE IV 06/07/25 17:00 06/07/25 17:59 DC 06/07/25 21:54 Departure 1 Departure Time of Disposition: 20:00 Impression: Primary Impression: Colitis Additional Impressions: UTI (urinary tract infection) Hypokalemia Disposition: ADMITTED INPATIENT Admit to: Med Surg Condition: Fair Critical Care Note Critical Care Time?: No Stability Stability form required: No Heart Score Heart Score: Heart Score Response (Comments) Value History N/A 0 EKG N/A 0 Age N/A 0 Risk Factors N/A 0 Troponin N/A 0 Total 0 I personally scribed for ROBBIN CHAWLA MD ([email or web address]) on 06/07/25 at 19:26. Electronically submitted by Ángel Jin ([email or web address]). ROBBIN CHAWLA MD Jun 07, 2025 19:00
--- NOTE | 2025-06-07 19:24 | DVH ---
Exam: CT CT AB PEL WO CON-NO ORAL OR IV History: LLQ pain, diarrhea Comparison Study: CT AB PEL WITH IV CON ONLY on DOS: 05/17/22, PELVIC on DOS: 05/17/22, CT ABD PELVIS W O CONTRAST on DOS: 04/02/22 TECHNIQUE: Multidetector CT of the abdomen AND PELVIS without IV contrast. Axial, coronal and sagitta l multiplanar reformats were obtained from the axial data set by the technologist. Radiation Dose Information: CT Dose: CTDI volume is 13.93 mGy. Dose-length product is 771.5 mGy*cm FINDINGS: The lung bases are clear. Partially visualized heart is unremarkable. Liver, spleen, gallbladder, pancreas and adrenal glands are unremarkable. Kidneys, ureters and urinary bladder unremarkable. Uterus and adnexa unremarkable. Mild gastric wall thickening. Mild wall Thickening of proximal small bowel loops. The remainder of t he small bowel loops unremarkable. Appendix is unremarkable. Mild wall thickening of the ascending an d proximal transverse colon. The remainder of the large bowel is unremarkable. Small to moderate am ount of fecal material within the colon. No evidence of intraperitoneal free air or free fluid. No evidence of aortic aneurysm. Prominent mesenteric lymph nodes the largest of the right lower abdominal quadrant measuring up to 1. 1 cm in short axis. Mild nonspecific patchy fat stranding of the right posterolateral hip subcutaneous fat. The soft tis sues are otherwise unremarkable. No evidence of acute osseous abnormalities. IMPRESSION: Mild wall thickening of the stomach and proximal small bowel loops which may be due to inadequate dis tention/mild gastroenteritis. Mild colitis involving the ascending colon and proximal transverse colon. Prominent mesenteric lymph nodes which represent mesenteric adenitis in the right clinical setting.
[2025-06-07] MEDS: SODIUM CHLORIDE 0.9% 1,000 ML IV ONE (21:54)
[2025-06-07] MEDS: ONDANSETRON HCL 4 MG/2 ML VIAL IV ONE (22:02)
[2025-06-07] MEDS: MORPHINE SULFATE 4 MG/ML SYR/VIAL IV ONE (22:02)
[2025-06-07] MEDS: POTASSIUM EFFERVESENT TAB 25 MEQ PO ONE (22:10)
[2025-06-08] MEDS ORDERED: ONDANSETRON HCL 4 MG/2 ML VIAL IV PRN (01:15)
[2025-06-08] MEDS: POTASSIUM EFFERVESENT TAB 25 MEQ PO ONE (03:30)
--- NOTE | 2025-06-08 07:37 | DVHHPRES ---
History of Present Illness Resident Creating Document: TRACY NGUYEN RESIDENT History of Present Illness 24-year-old female presented with a diarrhea since last 5 days. She experienced nausea and dizziness. The she also complains of left-sided pain and body ache as well. Denies any sick contact or recent travel history. The stool is not mixed with blood. Denies any chest pain, shortness of breath, fever or any other complaints at this time. Past medical history: Asthma, episodes of borderline high blood pressure: Regular monitoring by PCP, prediabetic 9 past surgical history none Allergies: None PCP: Dr. Ross Smoking cigarettes none Marijuana: occasionally Alcohol: last week, occasionally Code status: Full code Review of Systems Gastrointestinal: Diarrhea Allergies: Coded Allergies: NO KNOWN ALLERGIES (Unverified , 04/13/21) Medications Current Medications Medications Dose Ordered Sig/Tung Route Start Time Stop Time Status Last Admin Dose Admin Sodium Chloride 10 ml Q8HR IV 06/08/25 06:00 Sodium Chloride 1,000 ml @ 60 mls/hr [id number] IV 06/08/25 01:15 Ondansetron HCl 4 mg Q4HP PRN IV 06/08/25 01:15 Ciprofloxacin 200 ml @ 200 mls/hr Q12HR IV 06/08/25 10:00 Metronidazole 100 ml @ 100 mls/hr Q8HR IV 06/08/25 06:00 Exam Vital Signs Vital Signs Date Time Temp Pulse Resp B/P (MAP) Pulse Ox O2 Delivery O2 Flow Rate FiO2 06/08/25 06:26 97.5 81 16 120/88 (99) 98 97.5 06/07/25 21:54 Room Air Exam General Appearance: Alert, Oriented X3, Cooperative, Mild distress HEENT: Atraumatic, Mucous membranes moist/pink Respiratory: Clear to auscultation, Normal air movement, No added sounds Cardiovascular: Regular rate, Normal S1, Normal S2, No murmurs Abdominal/ : Active bowel sounds, Soft, no distention, left upper quadrant tenderness Extremities: No edema, Normal pulses, No tenderness/swelling Skin: No Significant rash, except past surgical scars Neuro: Normal speech, sensorimotor deficits none Psych/Mental Status: Mental status NL, Mood NL Nurse was there as inspector dials during examination Labs/Xrays Labs Test 06/07/25 17:21 06/07/25 16:10 Range/Units White Blood Count 6.5 4.4-10.8 10^3/uL Red Blood Count 4.84 4.0-5.20 10^6/uL Hemoglobin 14.3 12.2-16.2 g/dL Hematocrit 42.3 36.0-46.0 % Mean Corpuscular Volume 87.4 80.0-100.0 fL Mean Corpuscular Hemoglobin 29.5 28.0-32.0 pg Mean Corpuscular Hemoglobin Concent 33.7 32.0-36.0 g/dL Red Cell Distribution Width 13.2 11.8-14.3 % Platelet Count 315 140-450 10^3/uL Mean Platelet Volume 7.7 6.9-10.8 fL Neutrophils (%) (Auto) 70.9 37.0-80.0 % Lymphocytes (%) (Auto) 15.9 10.0-50.0 % Monocytes (%) (Auto) 11.6 0.0-12.0 % Eosinophils (%) (Auto) 1.4 0.0-7.0 % Basophils (%) (Auto) 0.2 0.0-2.0 % Neutrophils # (Auto) 4.6 1.6-8.6 10 ^3/uL Lymphocytes # (Auto) 1.0 0.4-5.4 10 ^3/uL Monocytes # (Auto) 0.8 0-1.3 10 ^3/uL Eosinophils # (Auto) 0.1 0-0.8 10 ^3/uL Basophils # (Auto) 0 0-0.2 10 ^3/uL Nucleated Red Blood Cells 0.1 % Sodium Level 139 136-145 mmol/L Potassium Level 3.3 L 3.5-5.1 mmol/L Chloride Level 109 H 98-107 mmol/L Carbon Dioxide Level 21 20-31 mmol/L Anion Gap 9 5-15 Blood Urea Nitrogen < 5 L 9-23 mg/dL Creatinine 0.84 0.550-1.02 mg/dL Glomerular Filtration Rate Calc 100 >90 mL/min BUN/Creatinine Ratio 6.0 L 10.0-20.0 Serum Glucose 90 74-106 mg/dL Lactic Acid Level 0.8 0.4-2.0 mmol/L Calcium Level 8.6 L 8.7-10.4 mg/dL Total Bilirubin 0.3 0.2-1.0 mg/dL Aspartate Amino Transferase (AST) 29 13-40 U/L Alanine Aminotransferase (ALT) 43 H 7-40 U/L Alkaline Phosphatase 75 46-116 U/L Total Protein 7.1 5.7-8.2 g/dL Albumin 4.5 3.2-4.8 g/dL Beta HCG, Quantitative < 0.0 L 1.5-4.2 mIU/mL Urine Color Brown H Yellow Urine Clarity Ex.turbid Clear Urine pH 5.5 5.0-9.0 Urine Specific [place] 1.023 1.001-1.035 Urine Protein Trace H Negative Urine Ketones 2+ H Negative Urine Blood 1+ H Negative /uL Urine Nitrite Negative Negative Urine Bilirubin Negative Negative Urine Urobilinogen Normal Negative mg/dL Urine Leukocyte Esterase Negative Negative /uL Urine RBC 1 0 - 4 /hpf Urine Microscopic WBC 17 H 0-5 /HPF Urine Squamous Epithelial Cells Few <5 /hpf Urine Amorphous Crystals Few None Seen /hpf Urine Bacteria None seen None Seen /hpf Urine Mucus Few None Seen Urine Glucose Normal Normal mg/dL Urine Test Negative Negative SEPSIS Sepsis Screen Date sepsis recognized/suspect: Jun 07, 2025 Time Sepsis recognized/suspect: 8 Recent Procedure: No On Antibiotic Therapy: No Respiratory Rate >20: No Heart Rate >90: Yes Temp<36 C (96.8 F) or >38.3 C: No SBP <90 or MAP <65 mmHG: No New Acute Mental Status Change: No Is the patient on CPAP, BIPAP,: No Physician Orders Admit (06/08/25 01:06) Allergies (06/08/25 01:06) Code Status (06/08/25 01:06) Sodium Chloride Lock (Saline Lock Ns) (06/08/25 06:00) Sodium Chloride 0.9% (06/08/25 01:15) Ondansetron Hcl (Zofran) (06/08/25 01:15) Notify Of Changes From Base (06/08/25 01:06) Stool Occult Blood (06/08/25 03:10) Stool Wbc (06/08/25 03:10) Stool Bacterial Culture (06/08/25 03:10) Clostridium Difficile Toxin (06/08/25 03:13) Ciprofloxacin 400mg/200ml (Cipro Iv) (06/08/25 10:00) Metronidazole 500mg/100ml (Flagyl 500mg/ (06/08/25 06:00) Vital Signs Date Time Temp Pulse Resp B/P (MAP) Pulse Ox O2 Delivery O2 Flow Rate FiO2 06/08/25 06:26 97.5 81 16 120/88 (99) 98 97.5 06/07/25 23:57 98.4 80 16 130/88 (102) 97 98.4 Assessment/Plan Assessment/Plan Diarrhea due to gastroenteritis/C diff Stool studies sent IV fluid Ciprofloxacin metronidazole GI prophylaxis: Not indicated DVT prophylaxis: Not indicated Diet: Clear liquids Goals of care discussed with the patient for more than 27 minutes: Full code status Case discussed with , patient and RN Plan discussed with: Patient, Other (RN) My Orders Orders - TRACY NGUYEN Procedure Category Date Status Time Admit ADMIT 06/08/25 Transmitted 01:06 Allergies ALEXIA 06/08/25 In Process 01:06 Code Status CODE 06/08/25 Transmitted 01:06 Sodium Chloride Lock PHA 06/08/25 In Process (Saline Lock Ns) 06:00 Sodium Chloride 0.9% PHA 06/08/25 In Process 01:15 Ondansetron Hcl PHA 06/08/25 In Process (Zofran) 01:15 Notify Md Of Changes ALEXIA 06/08/25 In Process From Base 01:06 Stool Occult Blood LAB 06/08/25 Logged 03:10 Stool Wbc LAB 06/08/25 Logged 03:10 Stool Bacterial SLADE 06/08/25 Uncollected Culture 03:10 Clostridium Difficile SLADE 06/08/25 Uncollected Toxin 03:13 Ciprofloxacin PHA 06/08/25 In Process 400mg/200ml (Cipro Iv) 10:00 Metronidazole PHA 06/08/25 In Process 500mg/100ml (Flagyl 06:00 Date of Service: Jun 08, 2025 Billing Provider: UBALDO HOLLAND MD Common Visit Codes: [id number] INP/OBS CARE (HIGH) TRACY NGUYEN Jun 08, 2025 07:37 UBALDO HOLLAND MD Jun 09, 2025 13:51
--- NOTE | 2025-06-08 08:02 | DVHPNRES ---
Progress Note Date Seen: Jun 08, 2025 Resident Creating Document: EDGARD BENNETT RESIDENT Subjective Review of Systems Cely Gamboa Is a 24-year-old female with no significant past medical history, presented to the ER with chief complain of diarrhea, nausea, dizziness. The diarrhea started 5 days back, she reports stools are loose, watery, foul- smelling without any blood. She is unable to put everything down due to nausea. She also has associated abdominal pain in the left flank area she rates the pain 8 on 10, constant, relieved by bowel movements. She is also complaining of headaches since last 2 days which is 10 on 10, throbbing without aggravating or relieving factors. She has associated dizziness, lightheadedness. She denies eating from food truck, recent travel. Her last menstrual period was May 15. PHX: Peptic ulcer disease, asthma, ovarian cyst, recurrent UTI Social history: Denies cigarette smoking, recreational drug use. Occasional marijuana, alcohol use ROS: Constitutional: Chills. Denies weight loss, fever. HEENT: Denies changes in vision and hearing. Respiratory: Denies shortness of breath and cough Cardiovascular: Denies chest discomfort or palpitations GI: Abdominal pain, nausea, and diarrhea. : Denies dysuria and urinary frequency. Musculoskeletal: Denies myalgias and joint pain Skin: Denies rash and pruritus. Neurological: Dizziness, headache She was examined at bedside today. Her vitals are stable. She is started on IV antibiotics, stool culture sent, unable to put anything down we will be NPO with advancing diet as tolerated. Objective vital signs Vital Sign Date Time Temp Pulse Resp B/P (MAP) Pulse Ox O2 Delivery O2 Flow Rate FiO2 06/08/25 06:26 97.5 81 16 120/88 (99) 98 97.5 06/07/25 21:54 Room Air Total Intake and Output 06/07/25 06/07/25 06/08/25 15:00 23:00 07:00 Intake Total 1200 ml Balance 1200 ml medications Current Medications Medications Dose Ordered Sig/Tung Route Start Time Stop Time Status Last Admin Dose Admin Sodium Chloride 10 ml Q8HR IV 06/08/25 06:00 Sodium Chloride 1,000 ml @ 60 mls/hr [id number] IV 06/08/25 01:15 Ondansetron HCl 4 mg Q4HP PRN IV 06/08/25 01:15 Ciprofloxacin 200 ml @ 200 mls/hr Q12HR IV 06/08/25 10:00 Metronidazole 100 ml @ 100 mls/hr Q8HR IV 06/08/25 06:00 Examination General: Patient alert and oriented in person, place and time. Patient following commands. HEENT: Normocephalic, atraumatic, moist mucous membranes Respiratory/pulmonary: Clear lungs bilaterally, vesicular murmurs present in almost all lung cisneros, no associated crackles or wheezes. Cardiovascular: Normal heart sounds S1 and S2 with no associated murmurs Abdomen: Tenderness in the left flank on palpation Extremities: There is no peripheral edema present at the lower extremities. Peripheral Pulses: 3+ Radial (R). 3+ Radial (L). 3+ Dorsalis pedis (R). 3+ Dorsalis pedis(L) Skin: No rashes or pruritus, there is no sacral edema present at this time. Neurological: Intact cranial nerves with no focal neurologic deficits laboratory and microbiology Laboratory Tests 06/07/25 17:21 Test 06/07/25 17:21 Range/Units Serum Glucose 90 74-106 mg/dL Problem List/Assessment/Plan Problem List/Assessment/Plan Acute gastroenteritis, likely infectious Rule out C diff gastroenteritis P.o. non tolerant Stool culture, test for C diff ordered Continue IV ciprofloxacin, metronidazole Continue IV fluids, Zofran Complicated UTI, with pyelonephritis, possible History of recurrent UTI Labs show UA positive for UTI CT abdomen: Mild wall thickening of the stomach and proximal small bowel loops which may be due to inadequate distention/mild gastroenteritis. Mild colitis involving the ascending colon and proximal transverse colon. Prominent mesenteric lymph nodes which represent mesenteric adenitis in the right clinical setting. Urine culture sent Continue IV ciprofloxacin, metronidazole Continue IV fluids, Zofran Hypokalemia Supplemented History of asthma/ovarian cyst/peptic ulcer disease DIET: NPO CODE STATUS: Goals of care discussed with patient at bedside for more than 35 minutes. Full code DISPOSITION: Med/surge Patient's status and plan discussed with the patient. Case discussed with Dr. Solitario. Plan discussed with: Patient My Orders My Orders Orders - EDGARD BENNETT Procedure Category Date Status Time Potassium LAB 06/08/25 Logged 08:00 EDGARD BENNETT Jun 08, 2025 08:02
[2025-06-08 08:51] VITALS: PULSE 73; RESP 12; O2SAT 99
[2025-06-08] MEDS: SODIUM CHLOR 0.9% PF (SALINE LOCK) 10ML VIAL/SYR IV SCH (08:53)
[2025-06-08] MEDS: SODIUM CHLORIDE 0.9% 1,000 ML IV SCH (08:54)
[2025-06-08 11:50] VITALS: BP 119/80; PULSE 70; RESP 12; TEMP 98.8; O2SAT 100
[2025-06-08] MEDS ORDERED: PANTOPRAZOLE 40 MG TAB PO ONE (12:30)
[2025-06-08] MEDS ORDERED: MAALOX PLUS or MAALOX 30 ML GT PRN (12:30)
[2025-06-08] MEDS: CIPROFLOXACIN 400MG/200ML 200 ML IV SCH (13:05)
--- NOTE | 2025-06-08 14:30 | DVHDSRES ---
Discharge Summary Date of Admission Resident Creating Document: EDGARD BENNETT RESIDENT Jun 08, 2025 at 01:06 Date of Discharge: Jun 08, 2025 Labs/Diagnostic Data: Laboratory Results Test 06/08/25 08:20 06/07/25 17:21 06/07/25 16:10 Potassium Level 4.1 mmol/L (3.5-5.1) White Blood Count 6.5 10^3/uL (4.4-10.8) Red Blood Count 4.84 10^6/uL (4.0-5.20) Hemoglobin 14.3 g/dL (12.2-16.2) Hematocrit 42.3 % (36.0-46.0) Mean Corpuscular Volume 87.4 fL (80.0-100.0) Mean Corpuscular Hemoglobin 29.5 pg (28.0-32.0) Mean Corpuscular Hemoglobin Concent 33.7 g/dL (32.0-36.0) Red Cell Distribution Width 13.2 % (11.8-14.3) Platelet Count 315 10^3/uL (140-450) Mean Platelet Volume 7.7 fL (6.9-10.8) Neutrophils (%) (Auto) 70.9 % (37.0-80.0) Lymphocytes (%) (Auto) 15.9 % (10.0-50.0) Monocytes (%) (Auto) 11.6 % (0.0-12.0) Eosinophils (%) (Auto) 1.4 % (0.0-7.0) Basophils (%) (Auto) 0.2 % (0.0-2.0) Neutrophils # (Auto) 4.6 10 ^3/uL (1.6-8.6) Lymphocytes # (Auto) 1.0 10 ^3/uL (0.4-5.4) Monocytes # (Auto) 0.8 10 ^3/uL (0-1.3) Eosinophils # (Auto) 0.1 10 ^3/uL (0-0.8) Basophils # (Auto) 0 10 ^3/uL (0-0.2) Nucleated Red Blood Cells 0.1 % Sodium Level 139 mmol/L (136-145) Chloride Level 109 mmol/L (98-107) Carbon Dioxide Level 21 mmol/L (20-31) Anion Gap 9 (5-15) Blood Urea Nitrogen < 5 mg/dL (9-23) Creatinine 0.84 mg/dL (0.550-1.02) Glomerular Filtration Rate Calc 100 mL/min (>90) BUN/Creatinine Ratio 6.0 (10.0-20.0) Serum Glucose 90 mg/dL (74-106) Lactic Acid Level 0.8 mmol/L (0.4-2.0) Calcium Level 8.6 mg/dL (8.7-10.4) Total Bilirubin 0.3 mg/dL (0.2-1.0) Aspartate Amino Transferase (AST) 29 U/L (13-40) Alanine Aminotransferase (ALT) 43 U/L (7-40) Alkaline Phosphatase 75 U/L (46-116) Total Protein 7.1 g/dL (5.7-8.2) Albumin 4.5 g/dL (3.2-4.8) Beta HCG, Quantitative < 0.0 mIU/mL (1.5-4.2) Urine Color Brown (Yellow) Urine Clarity Ex.turbid (Clear) Urine pH 5.5 (5.0-9.0) Urine Specific [place] 1.023 (1.001-1.035) Urine Protein Trace (Negative) Urine Ketones 2+ (Negative) Urine Blood 1+ /uL (Negative) Urine Nitrite Negative (Negative) Urine Bilirubin Negative (Negative) Urine Urobilinogen Normal mg/dL (Negative) Urine Leukocyte Esterase Negative /uL (Negative) Urine RBC 1 /hpf (0 - 4) Urine Microscopic WBC 17 /HPF (0-5) Urine Squamous Epithelial Cells Few /hpf (<5) Urine Amorphous Crystals Few /hpf (None Seen) Urine Bacteria None seen /hpf (None Seen) Urine Mucus Few (None Seen) Urine Glucose Normal mg/dL (Normal) Urine Test Negative (Negative) Other Laboratory Tests 06/08/25 08:20 06/07/25 17:21 Brief Hx & Hospital Course: Brief history on admission: 24-year-old female presented with a diarrhea since last 5 days. Diarrheal stools are loose, watery, foul-smelling, without any blood. She is also complaining of abdominal pain and nausea, unable to put anything down. She complained of pain in the left lower abdomen, 8 on 10, constant sharp pain, relieved by bowel movement. She also complained of dizziness and body ache. She denied any sick contacts, eating at food truck or recent travel history. Denies any chest pain, shortness of breath, fever or any other complaints at this time. Hospital course: She was admitted along the lines of acute gastroenteritis, UTI with PO intolerance. Initial labs revealed urine analysis positive for UTI, hypokalemia. Stool and urine cultures ordered, started on IV fluid, antibiotics. She was informed details of Diagnosis, current condition, recommended treatment plan. She demonstrated decision making capacity and verbalized risks of leaving AMA and benefits of staying. On different occasions she verbalized understanding of leaving AMA. She eventually signed AMA document, patient was encouraged to seek care promptly if symptoms worsen. Conditions managed in hospital: Intractable nausea, diarrhea, abdominal pain likely due to infectious gastroenteritis, d/t Bacterial/viral Colitis, possible Complicated UTI, with pyelonephritis, possible History of recurrent UTI Obesity class 1 Gastritis secondary to NSAIDs overuse Rule out C diff gastroenteritis Hypokalemia History of asthma/ovarian cyst/peptic ulcer disease Condition at Discharge: Undetermined Final Diagnosis/Problems List Intractable nausea, diarrhea, abdominal pain likely due to infectious gastroenteritis, d/t Bacterial/viral Colitis, possible Complicated UTI, with pyelonephritis, possible Discharge Disposition: AMA Discharge Instruct/Medications Scheduled Acetaminophen (Acetaminophen), 500 MG PO Q4HPRN Diclofenac Potassium (Diclofenac Potassium), 50 MG PO TID Doxycycline Hyclate (Vibramycin), 1 CAP PO BID Methylprednisolone (Medrol Dosepak), 4 MG PO UD Sulfamethoxazole W/Trimethopri (Bactrim Ds Tablet), 1 TAB PO BID Tramadol Hcl (Tramadol Hcl), 50 MG PO BID Triamcinolone Acetonide (Triamcinolone Acetonide), 1 APPLIC TOP BID Discharge Statement: "Patient was advised to return to the ER or call 911 if any headaches, dizziness, shortness of breath, chest pain, abdominal pain, bleeding, fevers, or worsening of medical condition. Patient was counseled about treatment plan, medications, possible side effects, patientverbalized understanding. All questions were answered to the best of my ability. This discharge took greater then 30 minutes in planning, reviewing documentation, counseling the patient, and discussing with other team members." ASSESSMENT ASSESSMENT Assessment Date of Service: Jun 08, 2025 Billing Provider: SANDRA ALVARES MD Common Visit Codes: 65850-YEC/OBS DISCH DAY >30min EDGARD BENNETT RESIDENT Jun 08, 2025 14:30 SANDRA ALVARES MD Jun 14, 2025 22:07
[2025-06-09] MEDS ORDERED: PANTOPRAZOLE 40 MG TAB PO SCH (06:00)
== END 2025-06-08 15:41 | disposition left against medical advice (07) | DRG 248 ==
LOC: ER 15:57 → OVERFLOW 06-08 01:06 → UNDODISIN 06-08 03:40
PROVIDERS: ADMIT Student in an Organized Health Care Education/Training Program; ATTEND Emergency Medicine
DX: A04.72 Enterocolitis due to Clostridium difficile, not specified as recurrent (principal); N12 Tubulo-interstitial nephritis, not specified as acute or chronic; E66.811 Obesity, class 1; J45.909 Unspecified asthma, uncomplicated; I10 Essential (primary) hypertension; Z68.32 Body mass index [BMI] 32.0-32.9, adult; E87.6 Hypokalemia; A08.4 Viral intestinal infection, unspecified; K29.70 Gastritis, unspecified, without bleeding; T50.995A Adverse effect of other drugs, medicaments and biological substances, initial encounter; Z53.29 Procedure and treatment not carried out because of patient's decision for other reasons; Z87.11 Personal history of peptic ulcer disease; Y92.89 Other specified places as the place of occurrence of the external cause
CPT/HCPCS: 36415; 74176; 80053; 81001; 81025; 83605; 84132; 84702; 85025; 87040; 96361; 96374; 96375; G0378; J1956; J2405; J3490

== ENCOUNTER → 2025-06-11 | Emergency (ER) | payer MEDICAID ==
[~2025-06-11] VITALS: Ht 160 cm; Wt 74.7 kg
[2025-06-11 02:37] VITALS: BP 157/95; PULSE 81; RESP 16; TEMP 98.7; O2SAT 98
--- NOTE | 2025-06-11 07:44 | ECG ---
[facility] Test Date: 2025-06-11 Test Time: 02:33:17 Pat Name: JOHANN GOODMAN Department: ED Room: Gender: F [employer] Clerk: TRACI : 2000 Requested By: LOURDES MARRERO Order Number: [id number] Reading MD: Laron Plaza Measurements Intervals [place] Rate: 71 P: 52 LA: 148 QRS: 17 QRSD: 88 T: 28 QT: 382 QTc: 416 Interpretive Statements Sinus rhythm Electronically Signed On 06-13-2025 18:41:10 PDT by Laron Plaza Please click the below link to view image of tracing.
== END | disposition home or self-care (01) ==
LOC: ER 02:28
DX: R07.89 Other chest pain (principal); Z53.21 Procedure and treatment not carried out due to patient leaving prior to being seen by health care provider
CPT/HCPCS: 93005